=== PATIENT | female | born 1995 | race Two or more races ===

== ENCOUNTER 2019-01-20 11:52 | Inpatient (IN) | payer MEDICAID ==
[~2019-01-20] VITALS: Ht 170.2 cm; Wt 106.6 kg
--- NOTE | 2019-01-20 12:00 | NUR ---
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 PT IS A/O X4, AFEBRILE. RESPIRATIONS ARE EVEN AND UNLABORED, NOT IN ANY ACUTE DISTRESS NOTED. 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 PT IS AMBULATORY. ABDOMEN IS SOFT AND NONDISTENDED, BOWEL SOUNDS ARE PRESENT IN ALL 4 QUADRANTS UPON AUSCULTATION. PT C/O PAIN UPON PALPATING RLQ W/ /10. DENIES ANY BLADDER DISCOMFORT. SKIN IS INTACT, KEPT CLEAN AND DRY. NO SKIN ISSUES NOTED. IV SITE TO RFA G20 INTACT, NO INFILTRATION NOTED. DRESSING KEPT CLEAN AND DRY. SAFETY MEASURES ARE IN PLACE. DR. ENGLAND MADE AWARE OF ADMISSION. INSTRUCTED PT TO USE CALL LIGHT WHEN ASSISTANCE IS NEEDED, CALL LIGHT IS LEFT WITHIN REACH. WILL MONITOR THROUGHOUT SHIFT FOR CONTINUITY OF CARE.
[2019-01-20 12:15] VITALS: BP 110/60
[2019-01-20] MEDS ORDERED: IV D5/0.45 NACL 1,000 ML IV PRN (13:10)
[2019-01-20] MEDS ORDERED: MORPHINE SULFATE INJ 2 MG/ML DISP.SYRIN IV PRN ×2 (13:30→18:00)
[2019-01-20] MEDS ORDERED: ONDANSETRON HCL/PF 4 MG/2 ML VIAL IVP PRN (13:30)
[2019-01-20] MEDS ORDERED: ZOSYN IVPB 4.5 G in IV D5W 50ml IV ONE (13:30)
[2019-01-20] MEDS ORDERED: Z GUARD REMEDY 2 OZ OINT TP PRN (13:30)
--- NOTE | 2019-01-20 14:30 | NUR ---
MS RN NOTES-- PT SEEN AND EXAMINED Y DR. ABHINAV WILLETT.
[2019-01-20 14:47] LABS: CALCIUM, SERUM 8.9 mg/dL (8.5-10.1); CREATININE 0.7 mg/dL (0.6-1.3); POTASSIUM 3.8 mmol/L (3.5-5.1)
--- NOTE | 2019-01-20 14:50 | NUR ---
MS MENG NOTES-- CONSENTS SIGNED FOR LAPARASCOPIC APPENDECTOMY, POSSIBLE OPEN.
[2019-01-20] MEDS ORDERED: ANESTHESIA TRAY IN PYXIS 1 EA TRAY MC ONE (15:31)
[2019-01-20] MEDS ORDERED: LIDOCAINE HCL/MPF 1% 30 ML VIAL IJ ONE (15:32)
[2019-01-20] MEDS ORDERED: BUPIVACAINE MPF 0.5% W/EPI INJ 30 ML VIAL ONE (15:32)
[2019-01-20 15:47] LABS: HEMATOCRIT 41 % (33-45); HEMOGLOBIN 13.4 g/dL (11.5-14.8); LYMPHOCYTES % (AUTO) 6.5 % (20.0-44.0); MEAN CORPUSCULAR HGB CONC 33 g/dl (31.0-36.0); MEAN CORPUSCULAR VOLUME 92 fL (82-100); MONOCYTES # (AUTO) 0.7 /CMM (0.1-1.30); MONOCYTES % (AUTO) 4.5 % (2.0-12.0); NEUTROPHILS # (AUTO) 14.1 /CMM (1.8-8.9); PLATELET COUNT (AUTO) 339 /CMM (150-450); RED BLOOD CELL COUNT(AUTO) 4.42 MIL/uL (4.0-5.2); WHITE BLOOD COUNT (AUTO) 15.8 K/uL (4.3-11.0)
--- NOTE | 2019-01-20 15:50 | NUR ---
MS RN NOTES-- PT WHEELED DOWN VIA GURNEY TO OR FOR PROCEDURE.
[2019-01-20 15:52] LABS: ALBUMIN 3.8 g/dL (3.4-5.0); BILIRUBIN,DIRECT 0.2 mg/dL (0.0-0.2); BILIRUBIN,TOTAL 0.7 mg/dL (0.2-1.0); TOTAL PROTEIN, SERUM 7.8 g/dL (6.4-8.2)
[2019-01-20] MEDS ORDERED: MIDAZOLAM HCL 2 MG/2ML VIAL ONE (15:56)
[2019-01-20] MEDS ORDERED: FENTANYL PF 250MCG/5ML AMPUL ONE (15:56)
[2019-01-20] MEDS ORDERED: FAMOTIDINE/PF INJ 20 MG/2 ML VIAL IV ONE (15:57)
[2019-01-20] MEDS ORDERED: ROCURONIUM BROMIDE 50 MG/5 ML ONE (15:57)
[2019-01-20 16:00] VITALS: BP 107/63
[2019-01-20] MEDS ORDERED: PIPERACILLIN /TAZOBACTAM 4.5 G in IV D5W 50 ML IV SCH (18:00)
[2019-01-20] MEDS ORDERED: ACETAMINOPHEN ES 500 MG TABLET PO PRN (18:00)
[2019-01-20] MEDS ORDERED: HYDROCODONE/APAP 5/325MG 1 EACH TABLET PO PRN (18:00)
--- NOTE | 2019-01-20 18:10 | NUR ---
MS RN NOTES-- PT ARRIVED VIA GURNEY TO RM [id number] FROM OR. PT NOTED WITH 3 INCISIONS TO LOWER ABDOMEN. NO DRESSING. KEPT CLEAN AND DRY. PT NOTED W/ RFA 20G INTACT, NO INFILTRATION NOTED. DRESSING KEPT CLEAN AND DRY. EDUCATED PT ON INCENTIVE SPIROMETER. ABLE TO PERFORM RETURN DEMONSTRATION. SAFETY MEASURES ARE IN PLACE. VITAL SIGNS WNL. REMINDED PT ON HOW TO USE CALL LIGHT, CALL LIGHT IS LEFT WITHIN REACH.
--- NOTE | 2019-01-20 18:27 | NUR ---
MS RN CLOSING NOTES ALL DUE MEDS GIVEN, NEEDS MET AND RENDERED. PT REMAIN A/O X4, AFEBRILE. RESPIRATIONS ARE EVEN AND UNLABORED, NOT IN ANY ACUTE DISTRESS NOTED. DENIES ANY PAIN AT THIS TIME, NO C/O SOB, N/V. IV ACCESS TO RFA INTACT, NO INFILTRATION NOTED. DRESSING KEPT CLEAN AND DRY. SAFETY MEASURES ARE IN PLACE. REMINDED PT TO USE CALL LIGHT WHEN ASSISTANCE IS NEEDED, CALL LIGHT IS LEFT WITHIN REACH. WILL ENDORSE TO NEXT SHIFT FOR CONTINUITY OF CARE.
[2019-01-20 20:00] VITALS: BP 103/61
[2019-01-20] MEDS: PIPERACILLIN /TAZOBACTAM 3.375 G in IV D5W 100 ML IV SCH (20:45)
[2019-01-21 04:00] VITALS: BP 117/67
[2019-01-21] MEDS: PIPERACILLIN /TAZOBACTAM 3.375 G in IV D5W 100 ML IV SCH ×3 (04:07→20:33)
--- NOTE | 2019-01-21 04:37 | NUR ---
med time one with tylenol 500mg po for low grade temp enc pt to tc&db sites on abd remaind dry and intact pt denies pain/discomfort also hl in right ac infiltrated new hl in left hand #24g indio well
[2019-01-21 07:03] LABS: BASOPHILS % (AUTO) 0.2 % (0.0-2.0); EOSINOPHILS % (AUTO) 0.7 % (0.0-6.0); HEMATOCRIT 33 % (33-45); HEMOGLOBIN 11.2 g/dL (11.5-14.8); LYMPHOCYTES # (AUTO) 3.3 /CMM (0.8-4.8); LYMPHOCYTES % (AUTO) 30.7 % (20.0-44.0); MEAN CORPUSCULAR HGB CONC 34 g/dl (31.0-36.0); MEAN CORPUSCULAR VOLUME 91 fL (82-100); MONOCYTES # (AUTO) 0.6 /CMM (0.1-1.30); MONOCYTES % (AUTO) 5.6 % (2.0-12.0); NEUTROPHILS # (AUTO) 6.7 /CMM (1.8-8.9); NEUTROPHILS % (AUTO) 62.8 % (43.0-81.0); PLATELET COUNT (AUTO) 268 /CMM (150-450); RED BLOOD CELL COUNT(AUTO) 3.58 MIL/uL (4.0-5.2); WHITE BLOOD COUNT (AUTO) 10.6 K/uL (4.3-11.0)
[2019-01-21 08:00] VITALS: BP 97/57
[2019-01-21 08:45] LABS: THYROID STIMULATING HORMONE 0.658 uIU/mL (0.358-3.74)
[2019-01-21 09:44] LABS: ALBUMIN 3.1 g/dL (3.4-5.0); BILIRUBIN,TOTAL 1.3 mg/dL (0.2-1.0); CREATININE 0.9 mg/dL (0.6-1.3); PHOSPHORUS 3.2 mg/dL (2.5-4.9); POTASSIUM 3.4 mmol/L (3.5-5.1); TOTAL PROTEIN, SERUM 6.4 g/dL (6.4-8.2)
[2019-01-21 16:00] VITALS: BP 108/63
--- NOTE | 2019-01-21 18:31 | NUR ---
Patient A/O x4 , family at bedside. Patient afebrile, encouraged to ambulate.Patient denies any pain and tolerated soft diet well. No N/V noted. IV assess intact and patent. Patient will be D/C home tomorrow. All needs attended. Safety precautions observed, call light within reach. Will endorse to next shift for VALERIANO.
[2019-01-21 20:00] VITALS: BP 108/70
--- NOTE | 2019-01-21 20:00 | NUR ---
PATIENT ALERT AND ORIENTED X4, CALM, ROOM AIR, DENIES PAIN, S/P LAP APPY, TOLERATING ORAL INTAKE, DRINKING FLUIDS, AMBULATING, ABDOMINAL INCISION DRY AND INTACT. KEPT SAFE, CALL LIGHT WITHIN REACH.
[2019-01-22] MEDS: PIPERACILLIN /TAZOBACTAM 3.375 G in IV D5W 100 ML IV SCH ×2 (03:56→12:17)
--- NOTE | 2019-01-22 06:05 | NUR ---
RN NOTES PATIENT ALERT AND AWAKE, NO APPARENT DISTRESS, DENIES PAIN AT THIS TIME, S/P LAP APPY, ABDOMINAL INCISIONS X3 DRY AND INTACT, TOLERATING ORAL INTAKE, NO COMPLAIN OF VOMITING, PASSING GAS, ACTIVE BOWEL SOUNDS, AMBULATING, CONTINUE ZOSYN Q8HRS, FOR DC TO HOME TODAY.
[2019-01-22 08:00] VITALS: BP 95/60
--- NOTE | 2019-01-22 08:00 | NUR ---
RN OPENING NOTES PT AWAKE AND RESTING IN BED. NO COMPLAINTS OF PAIN, SOB OR DISTRESS AT THIS TIME. PT STATES HER STOMACH IS SORE BUT NO PAIN. PT HAS A LEFT HAND #24 IV INTACT AND PATENT. SAFETY PRECAUTIONS IN PLACE BED IN LOWEST LOCKED POSITION, X2 SIDE RAILS UP AND CALL LIGHT WITHIN REACH. WILL CONTINUE TO MONITOR.
[2019-01-22] MEDS ORDERED: LEVO500T75 PO (13:46)
--- NOTE | 2019-01-22 15:56 | NUR ---
FIRST CRUSHER NOTES PT STABLE AT DISCHARGE. ALL DISCHARGE PAPERWORK DISCUSSED, SIGNED, COPIED, AND GIVEN TO THE PATIENT. IV AND ID BAND REMOVED. ALL PATIENT BELONGINGS TAKEN WITH PATIENT. PT AMBULATED ALONG WITH RN, AND FAMILY OFF OF THE UNIT AT 1551.
== END 2019-01-22 15:45 | disposition home or self-care (01) | DRG 233 ==
LOC: TELE 11:52 → MED 14:06
PROVIDERS: ADMIT Nurse Practitioner Acute Care; ATTEND Nurse Practitioner Acute Care
PROC: 0DTJ4ZZ Resection of Appendix, Percutaneous Endoscopic Approach (ICD-10-PCS; principal; 2019-01-20)
DX: K35.32 Acute appendicitis with perforation, localized peritonitis, and gangrene, without abscess (principal); E66.9 Obesity, unspecified; Z68.36 Body mass index [BMI] 36.0-36.9, adult; K38.1 Appendicular concretions
CPT/HCPCS: 36415; 71045-TC; 80048-TC; 80053-TC; 80061-TC; 80076-TC; 83735-TC; 84100-TC; 84443-TC; 84703-TC; 85025-TC; 85610-TC; 85730-TC; 86850-TC; 87081-TC; G0378; J0690; J1885; J2250; J2405; J2543; J2704; J2710; J2765; J3010; J3490; J7060